=== PATIENT | male | born 1965 | race Caucasian/White ===

== ENCOUNTER 2025-01-16 19:04 | Emergency (ER) | payer OTHER ==
[~2025-01-16] VITALS: Ht 182.9 cm; Wt 122.7 kg
[2025-01-16 19:42] VITALS: TEMP 97.9
[2025-01-16] MEDS: ACETAMINOPHEN 500 MG TABLET PO ONE (21:14)
[2025-01-16] MEDS: IBUPROFEN 400 MG TABLET PO ONE (21:14)
[2025-01-16 22:02] VITALS: BP 116/77; PULSE 100; RESP 16; O2SAT 98
== END 2025-01-16 22:10 | disposition home or self-care (01) ==
LOC: EMS 19:07
DX: F10.129 Alcohol abuse with intoxication, unspecified (principal); E11.9 Type 2 diabetes mellitus without complications; F31.9 Bipolar disorder, unspecified; V89.2XXA Person injured in unspecified motor-vehicle accident, traffic, initial encounter; Y93.89 Activity, other specified; Y92.410 Unspecified street and highway as the place of occurrence of the external cause; Y99.8 Other external cause status; Y90.9 Presence of alcohol in blood, level not specified
CPT/HCPCS: 99283; Z7502